=== PATIENT | female | born 1970 | race American Indian/Alaskan Native ===

== ENCOUNTER 2020-09-21 11:35 | Emergency (ER) | payer MEDICARE ==
[2020-09-21] MEDS ORDERED: KETOROLAC 30 MG/1 ML INJ IM ONE (14:28)
--- NOTE | 2020-09-21 14:36 | Emergency Department Report ---
ED General Adult HPI - General Chief complaint: Pain General Stated complaint: BODY PAIN Time Seen by Provider: 09/21/20 13:30 Source: patient Mode of arrival: Stretcher Limitations: No Limitations - History of Present Illness Initial comments: This is a 50-year-old female with past medical history of fibromyalgia, hypertension, hyperlipidemia, and diabetes who presents to the emergency department the chief complaint of body spasming. She reports this is typical for her fibromyalgia pain. She called EMS due to the symptoms and they checked her blood glucose and she states it was 447. She had not taken her medications regularly due to her doctor not being available to see her. She states she has not had a refill on her medications in over 2 months. She currently takes gabapentin, hydrochlorothiazide, paroxetine, metformin, glipizide, Lipitor, Flexeril and gabapentin. She states usually her gabapentin will help with her symptoms that are typical for her fibromyalgia. Severity scale (0 -10): 8 - Related Data Previous Rx's Medication Instructions Recorded Last Taken Type AtorvaSTATin 10 mg PO QHS #30 tab 09/21/20 Unknown Rx Cyclobenzaprine [Flexeril] 10 mg PO TID PRN #30 tablet 09/21/20 Unknown Rx Gabapentin [Neurontin] 600 mg PO Q8H #90 tablet 09/21/20 Unknown Rx Metformin HCl [metFORMIN] 1,000 mg PO BID #60 tablet 09/21/20 Unknown Rx PARoxetine [Paxil] 20 mg PO DAILY #30 tablet 09/21/20 Unknown Rx glipiZIDE [Glucotrol] 10 mg PO BID #60 tab 09/21/20 Unknown Rx Allergies Allergy/AdvReac Type Severity Reaction Status Date / Time No Known Allergies Allergy Unverified 09/21/20 12:10 ED Review of Systems ROS: Stated complaint: BODY PAIN Other details as noted in HPI Comment: All other systems reviewed and negative Constitutional: denies: chills, fever Eyes: denies: eye pain, eye discharge, vision change ENT: denies: ear pain, throat pain Respiratory: denies: cough, shortness of breath, wheezing Cardiovascular: denies: chest pain, palpitations Endocrine: no symptoms reported Gastrointestinal: denies: abdominal pain, nausea, diarrhea Genitourinary: denies: urgency, dysuria, discharge Musculoskeletal: as per HPI, myalgia. denies: back pain, joint swelling, arthralgia Skin: denies: rash, lesions Neurological: denies: headache, weakness, paresthesias Psychiatric: denies: anxiety, depression Hematological/Lymphatic: denies: easy bleeding, easy bruising ED Past Medical Hx - Past Medical History Previous Medical History?: Yes Hx Hypertension: Yes Hx CVA: No Hx Heart Attack/AMI: No Hx Congestive Heart Failure: No Hx Diabetes: Yes Hx Deep Vein Thrombosis: No Hx Pulmonary Embolism: No Hx GERD: Yes Hx Liver Disease: No Hx Renal Disease: No Hx of Cancer: No Hx Sickle Cell Disease: No Hx Arthritis: No Hx Headaches / Migraines: No Hx Seizures: No Hx Kidney Stones: No Hx Psychiatric Treatment: Yes Hx Asthma: No Hx COPD: No Hx Tuberculosis: No Hx Dementia: No Hx HIV: No - Family History Family history: no significant - Medications Home Medications: Home Medications Medication Instructions Recorded Confirmed Last Taken Type AtorvaSTATin 10 mg PO QHS #30 tab 09/21/20 Unknown Rx Cyclobenzaprine [Flexeril] 10 mg PO TID PRN #30 tablet 09/21/20 Unknown Rx Gabapentin [Neurontin] 600 mg PO Q8H #90 tablet 09/21/20 Unknown Rx Metformin HCl [metFORMIN] 1,000 mg PO BID #60 tablet 09/21/20 Unknown Rx PARoxetine [Paxil] 20 mg PO DAILY #30 tablet 09/21/20 Unknown Rx glipiZIDE [Glucotrol] 10 mg PO BID #60 tab 09/21/20 Unknown Rx ED Physical Exam - General Limitations: No Limitations General appearance: alert, in no apparent distress - Head Head exam: Present: atraumatic, normocephalic - Eye Eye exam: Present: normal appearance, PERRL, EOMI Pupils: Present: normal accommodation - ENT ENT exam: Present: normal exam, normal orophraynx, mucous membranes moist - Neck Neck exam: Present: normal inspection, full ROM. Absent: tenderness, meningismus - Respiratory Respiratory exam: Present: normal lung sounds bilaterally. Absent: respiratory distress, wheezes, rales, rhonchi, stridor - Cardiovascular Cardiovascular Exam: Present: regular rate, normal rhythm, normal heart sounds. Absent: systolic murmur, diastolic murmur, rubs, gallop - GI/Abdominal GI/Abdominal exam: Present: soft, normal bowel sounds. Absent: distended, tenderness, guarding, rebound, rigid - Extremities Exam Extremities exam: Present: normal inspection, full ROM, normal capillary refill. Absent: tenderness, calf tenderness (Negative Homans' sign bilaterally.) - Back Exam Back exam: Present: normal inspection, full ROM. Absent: tenderness, CVA tenderness (R), CVA tenderness (L) - Neurological Exam Neurological exam: Present: alert, oriented X3, CN II-XII intact, normal gait - Psychiatric Psychiatric exam: Present: normal affect, normal mood - Skin Skin exam: Present: warm, dry, intact, normal color. Absent: rash ED Course Vital Signs 09/21/20 12:08 Pulse Rate 106 H Respiratory 18 Rate Blood Pressure 123/76 [Left] O2 Sat by Pulse 97 Oximetry - Reevaluation(s) Reevaluation #1: 09/21/20 15:33 Patient was given a dose of IM Toradol and on reevaluation she states she feels much better. Her labs were relatively normal glucose improved to 11 with no signs of DKA or other complicating features. ED Medical Decision Making - Lab Data Result diagrams: 09/21/20 14:38 09/21/20 14:38 - Medical Decision Making Patient is nontoxic in no acute distress. Vital signs are stable. She was given a dose of Toradol and feels much better. I will refill her medications due to her doctor not being able to see her at this time. I will give her another primary doctor to follow-up with and recommend she return to the ER with any changing or worsening symptoms. Patient is agreeable to this plan at this time and all her questions were answered. - Differential Diagnosis Diabetic neuropathy, fibromyalgia, hyperglycemia Critical care attestation.: If time is entered above; I have spent that time in minutes in the direct care of this critically ill patient, excluding procedure time. ED Disposition Clinical Impression: Fibromyalgia muscle pain, Hyperglycemia Disposition: DC-01 TO HOME OR SELFCARE Is pt being admited?: No Condition: Stable Instructions: Hyperglycemia, [id number] Prescriptions: AtorvaSTATin 10 mg PO QHS #30 tab Cyclobenzaprine [Flexeril] 10 mg PO TID PRN #30 tablet PRN Reason: Muscle Spasm glipiZIDE [Glucotrol] 10 mg PO BID #60 tab Metformin HCl [metFORMIN] 1,000 mg PO BID #60 tablet Gabapentin [Neurontin] 600 mg PO Q8H #90 tablet PARoxetine [Paxil] 20 mg PO DAILY #30 tablet Referrals: PRIMARY CAREMD [Primary Care Provider] - 3-5 Days JUAN C FLORES MD [Staff Physician] - 3-5 Days [facility] [Provider Group] - 3-5 Days Time of Disposition: 15:34
[2020-09-21 15:02] LABS: Basophils % (Auto) 0.7 % (0.0-1.8); Eosinophils % (Auto) 0.1 % (0.0-4.3); Hematocrit 44.1 % (30.3-42.9); Hemoglobin 14.8 gm/dl (10.1-14.3); Lymphocytes # (Auto) 1.7 K/mm3 (1.2-5.4); Lymphocytes % (Auto) 33.5 % (13.4-35.0); Mean Corpuscular HGB Conc 34 % (30-34); Mean Corpuscular Volume 92 fl (79-97); Monocytes # (Auto) 0.8 K/mm3 (0.0-0.8); Monocytes % (Auto) 15.6 % (0.0-7.3); Platelet Count 260 K/mm3 (140-440); Red Blood Count 4.78 M/mm3 (3.65-5.03); Red Cell Distribution Width 13.4 % (13.2-15.2)
[2020-09-21 15:21] LABS: Alanine Aminotransferase 33 units/L (7-56); Albumin 4.2 g/dL (3.9-5); BUN/Creatinine Ratio 9; Blood Urea Nitrogen 9 mg/dL (7-17); Hemolysis Index 4
[2020-09-21 15:54] VITALS: BP 119/72
== END 2020-09-21 15:54 | disposition home or self-care (01) ==
LOC: ED 11:35
DX: E11.65 Type 2 diabetes mellitus with hyperglycemia (principal); M79.7 Fibromyalgia; I10 Essential (primary) hypertension; E11.9 Type 2 diabetes mellitus without complications; K21.9 Gastro-esophageal reflux disease without esophagitis; E78.5 Hyperlipidemia, unspecified; Z79.899 Other long term (current) drug therapy
CPT/HCPCS: 36415; 80053; 85025; 96372; 99283; J1885